=== PATIENT | male | born 1975 | race Caucasian/White ===

== ENCOUNTER 2016-07-01 12:41 | Emergency (ER) | payer BC, OTHER ==
[2016-07-01 13:37] LABS: Urine Bacteria Absent (Absent); Urine Bilirubin Negative (Negative); Urine Glucose Negative (Negative); Urine Nitrite Negative (Negative)
[2016-07-01 13:44] LABS: Hematocrit 55 % (42-52); Hemoglobin 18.1 g/dl (14.0-18.0); Mean Corpuscular HGB Conc 33 g/dl (31-36); Mean Corpuscular Hemoglobin 30 pg (27-31); Mean Corpuscular Volume 91 fL (80-94); Mean Platelet Volume 8 um3 (7.4-10.4); Red Cell Distribution Width 13 % (10.5-15)
[2016-07-01 13:45] LABS: Add Diff/Slide Review? Slide Review Added; Comments Flag Yes
[2016-07-01 13:46] LABS: Benzodiazepine Urine Screen Presumptive Positive (None Detect)
[2016-07-01 13:58] LABS: ALT 13 U/L (7-52); AST 19 U/L (13-39); Albumin 5.1 g/dL (3.2-5.2); Alkaline Phosphatase 46 U/L (34-104); Anion Gap 9 mmol/L (2-11); BUN/Creatinine Ratio 11.8 (8-20); Blood Urea Nitrogen 13 mg/dL (6-24); CO2 Carbon Dioxide 23 mmol/L (22-32); Calcium 10.4 mg/dL (8.6-10.3); Chloride 103 mmol/L (101-111); EGFR African American 96.3 (>60); EGFR Non-African American 74.9 (>60); Globulin 3.3 g/dL (2-4); Glucose 87 mg/dL (70-100); Potassium 4.2 mmol/L (3.5-5.0); Sodium 135 mmol/L (133-145); Total Protein 8.4 g/dL (6.4-8.9)
[2016-07-01 14:17] LABS: Acetaminophen < 15 mcg/mL; Alcohol < 10 mg/dL (<10); Salicylate < 2.50 mg/dL (<30)
[2016-07-01 17:00] VITALS: BP 127/76
--- NOTE | 2016-07-01 17:01 | ED ---
Mathew Loving Billy, scribed for Mau Linares MD on 07/01/16 at 1259 . Psychiatric Complaint - HPI Summary HPI Summary: Patient is a 40 year-old male coming to [facility] with his for MHE after a "breakdown" earlier today. He states that he has thoughts of hurting himself but denies any specific plans to do so, and further states that he does not believe he would actually be able to carry out any plans. Denies homicidal ideation. He reports difficulty sleeping and decreased appetite. States that he "does not know what happiness feels like anymore." He has been taking Wellbutrin and Xanax for 1.5 years. - History Of Current Complaint Chief Complaint: EDMentalHealth Time Seen by Provider: 07/01/16 12:53 Accompanied By: Hx Obtained From: Patient, Family/Install And Repair Technician - Onset/Duration: Gradual Onset Timing: Constant Severity Initially: Moderate Severity Currently: Moderate Character: Depressed, Anxious Aggravating Factor(s): Nothing Alleviating Factor(s): Nothing Associated Signs And Symptoms: Positive: Sleep Disturbance, Appetite Change Related History: Positive For: Prior Psychiatric Issues Has Suicidal: Reports: Thoughts Has Homicidal: Denies: Thoughts - Allergies/Home Medications Allergies/Adverse Reactions: Allergies Allergy/AdvReac Type Severity Reaction Status Date / Time No Known Allergies Allergy Verified 07/01/16 12:46 PMH/Surg Hx/FS Hx/Imm Hx Endocrine/Hematology History: Denies: Hx Diabetes Cardiovascular History: Denies: Hx Hypertension Infectious Disease History: No Infectious Disease History: Denies: History Other Infectious Disease, Traveled Outside the [place] in Last 30 Days - Family History Known Family History: Positive: Diabetes - Social History Alcohol Use: None Substance Use Type: Reports: Marijuana Smoking Status (MU): Current Every Day Smoker Review of Systems Negative: Fever Positive: Depressed, Other - SI All Other Systems Reviewed And Are Negative: Yes Physical Exam - Summary Physical Exam Summary: VITAL SIGNS: Reviewed. GENERAL: Patient is a well developed and nourished male who is lying comfortable in the stretcher. Patient is not in any acute respiratory distress. HEAD AND FACE: No signs of trauma. No ecchymosis, hematomas or skull depressions. No sinus tenderness. EYES: PERRLA, EOMI x 2, No injected conjunctiva, no nystagmus. EARS: Hearing grossly intact. Ear canals and tympanic membranes are within normal limits. MOUTH: Oropharynx within normal limits. NECK: Supple, trachea is midline, no adenopathy, no JVD, no carotid bruit, no c- spine tenderness, neck with full ROM. CHEST: Symmetric, no tenderness at palpation LUNGS: Clear to auscultation bilaterally. No wheezing or crackles. CVS: Regular rate and rhythm, S1 and S2 present, no murmurs or gallops appreciated. ABDOMEN: Soft, non-tender. No signs of distention. No rebound no guarding, and no masses palpated. Bowel sounds are normal. EXTREMITIES: FROM in all major joints, no edema, no cyanosis or clubbing. NEURO: Alert and oriented x 3. No acute neurological deficits. Speech is normal and follows commands. SKIN: Dry and warm PSYCH: Depressed, quiet, denies any suicidal thoughts or plan. No homicidal thoughts or plan. No signs of psychosis or pressure speech. No tangential speech. Triage Information Reviewed: Yes Vital Signs On Initial Exam: Initial Vitals Temp Pulse Resp BP Pulse Ox 97.2 F 87 18 127/97 100 07/01/16 12:46 07/01/16 12:46 07/01/16 12:46 07/01/16 12:46 07/01/16 12:46 Vital Signs Reviewed: Yes Diagnostics - Vital Signs Vital Signs Temp Pulse Resp BP Pulse Ox 07/01/16 12:46 97.2 F 87 18 127/97 100 - Laboratory Result Diagrams: 07/01/16 13:30 07/01/16 13:30 Lab Statement: Any lab studies that have been ordered have been reviewed, and results considered in the medical decision making process. Course/Dx - Course Assessment/Plan: Patient is a 40 year-old male coming to [facility] with his for MHE after a "breakdown" earlier today. He states that he has thoughts of hurting himself but denies any specific plans to do so, and further states that he does not believe he would actually be able to carry out any plans. Denies homicidal ideation. He reports difficulty sleeping and decreased appetite. States that he "does not know what happiness feels like anymore." He has been taking Wellbutrin and Xanax for 1.5 years. Bloodwork WNL. The patient was medically clear and awaiting MHE. Dr. Alvarez examined and interviewed the patient , and cleared the patient for psychiatry. He recommended that the patient be discharged home to follow up with outpatient treatment. A&Ox3, hemodynamically stable. - Differential Dx/Clinical Impression Differential Diagnosis/HQI/PQRI: Positive: Anxiety, Depression Provider Diagnosis: Depression Discharge - Discharge Plan Condition: Stable Disposition: HOME Patient Education Materials: Depression (ED), Anxiety (ED) Referrals: Bassam Mason PA [Primary Care Provider] - Additional Instructions: Per completion of a mental health evaluation, you are cleared for release and do not require inpatient psychiatric hospitalization at this time. Please go to nearest emergency room or call 911 if safety concerns arise or condition worsens. Important Phone Numbers: [facility]~~ ph:[phone] Suicide Prevention and Crisis Services~~~~~~~~~~~~~~~~~~~~~~~ ph:[phone] National Suicide Prevention Lifeline~~~~~~~~~~~~~~~~~~~~~~~ ~~ ph:236-715- IKOO (4945) [facility]~~~~~~~~~~~~~~~~~~ ~~ ph:[phone] Alcoholics Anonymous~~~~~~~~~~~~~~~~~~~~~~~~~~~~~~~~~~~~~~~~~~~~~~~~~ ph: [facility]~~~~~~ ~~ ph:[phone] [facility] Police ph:[phone] Pt discharged home with . Pt will follow up with Primary Mental Health Therapist Dr. Rhoades Sunday morning. Pt has plans to attend [facility] intake appointment Sunday in order to access medication assessment and adjustment. Pt will discuss this plan with Dr. Rhoades and develop a plan to either follow up with [facility] or to follow an alternative plan for medication assessment and adjustment as developed with Dr. Rhoades. The documentation as recorded by the Mathew mancera Billy accurately reflects the service I personally performed and the decisions made by Vijay love Walter, MD.
== END 2016-07-01 17:24 | disposition home or self-care (01) ==
LOC: ED 12:41
DX: F32.9 Major depressive disorder, single episode, unspecified (principal); F17.200 Nicotine dependence, unspecified, uncomplicated
CPT/HCPCS: 36415; 80053; 80307; 80320; 80329; 81003; 81015; 84443; 85025; 99283; G0480